=== PATIENT | male | born 1985 | race Caucasian/White ===

== ENCOUNTER → 2022-02-27 | Outpatient (CLI) | payer SELFPAY | END | disposition other institution (70) | LOC: EMS 16:10 | DX: S82.92XB Unspecified fracture of left lower leg, initial encounter for open fracture type I or II (principal); V29.49XA Motorcycle driver injured in collision with other motor vehicles in traffic accident, initial encounter; Y93.55 Activity, bike riding; Y92.410 Unspecified street and highway as the place of occurrence of the external cause | CPT/HCPCS: A0425; A0427 ==